=== PATIENT | female | born 1965 | race Caucasian/White ===

== ENCOUNTER → 2016-09-01 | Outpatient (CLI) | payer BC, OTHER ==
--- NOTE | 2016-09-01 16:32 | MR ---
MRI of the Right Shoulder History: Status post rotator cuff reconstruction. Patient fell out of bed and may have reinjured righ t shoulder. Technique: Axial proton density, oblique coronal, and sagittal T1 and T2 images were acquired. Findings: Surgical features of a rotator cuff reconstruction are identified, with evidence of decompr essive acromioplasty. There are multiple suture anchors present in the greater tuberosity. There is evidence of 2 separate areas of injury to the reconstructed rotator cuff. Focal full-thickne ss tear of the anterior distal fibers of the supraspinatus tendon just proximal to the greater tubero sity attachment is identified, small in size (image 8 series 7). There is also a full-thickness perfo ration of the infraspinatus tendon at the myotendinous junction proximal to the distal reconstruction . This tear measures 9 mm in AP dimensions and is best visualized on oblique sagittal image 13 of ser ies 9 and axial image 6 of series 4. The subscapularis tendon is severely thinned distally compatible with high-grade near-complete tear. Teres minor is intact. Moderate fatty atrophy of supraspinatus, infraspinatus, and subscapularis muscles is identified. The long head biceps tendon is severely attenuated throughout the bicipital tubercle and is not visua lized within the shoulder joint. No suture anchor for tenodesis is identified. Findings, therefore, s uggest complete tear of long head biceps tendon with retraction and scarring within the tendon sheath . No displaced glenoid labral tear noted. The articular cartilage of the glenohumeral joint is intact. IMPRESSION: 1. Surgical features of rotator cuff reconstruction and decompressive acromioplasty. Two areas of rec urrent rotator cuff tendon injury are identified, one involving the anterior distal fibers of suprasp inatus at the greater tuberosity and the second involving infraspinatus at the myotendinous junction. 2. Near complete tear of subscapularis. 3. Severe attenuation of long head biceps tendon, not visualized within the shoulder joint, suggestin g complete tear with retraction and scarring within the tendon sheath. 4. Moderate fatty atrophy of supraspinatus, infraspinatus, subscapularis muscles.
== END ==
LOC: FIMAGING 08:19
PROVIDERS: ATTEND Physician Assistant
DX: S46.011A Strain of muscle(s) and tendon(s) of the rotator cuff of right shoulder, initial encounter (principal); Z96.611 Presence of right artificial shoulder joint

== ENCOUNTER → 2017-02-24 | Outpatient (CLI) | payer BC, OTHER | LOC: FIMAGING 18:42 | PROVIDERS: ATTEND Physician Assistant | DX: M75.121 Complete rotator cuff tear or rupture of right shoulder, not specified as traumatic (principal); M75.21 Bicipital tendinitis, right shoulder; M75.81 Other shoulder lesions, right shoulder; Z98.890 Other specified postprocedural states ==

== ENCOUNTER 2017-03-15 15:46 | Emergency (ER) | payer BC, OTHER ==
[2017-03-15 15:59] VITALS: RESP 18; TEMP 98
[2017-03-15] MEDS ORDERED: ACETAMINOPHEN 500 MG TAB PO ONE (16:08)
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
[2017-03-15 17:15] VITALS: O2SAT 96
[2017-03-15 17:30] VITALS: BP 112/62; PULSE 78
== END 2017-03-15 17:29 | disposition home or self-care (01) ==
LOC: CED 15:46
PROC: 0HQ0XZZ Repair Scalp Skin, External Approach (ICD-10-PCS; principal; 2017-03-15)
DX: S06.0X0A Concussion without loss of consciousness, initial encounter (principal); S01.81XA Laceration without foreign body of other part of head, initial encounter; F17.200 Nicotine dependence, unspecified, uncomplicated; V18.0XXA Pedal cycle driver injured in noncollision transport accident in nontraffic accident, initial encounter; Y92.410 Unspecified street and highway as the place of occurrence of the external cause; Y99.8 Other external cause status; Y93.55 Activity, bike riding

== ENCOUNTER 2017-04-25 08:36 | Day surgery (SDC) | payer BC, OTHER ==
--- NOTE | 2017-04-24 17:20 | PDHPUP ---
History & Physical Update H&P update statement: This history and physical update is based on an assessment of the patient which was completed after admission or registration (within 24 hours), but prior to the surgery/procedure. H&P update: H&P reviewed & patient examined, no change in patient's condition since H&P completed
[~2017-04-25 08:36] MED LIST: ACETAMINOPHEN 500 MG TAB PO ONE; BUPIVACAINE/EPI 0.5% 30 ML SDV ONE; CLINDAMYCIN 900 MG/DEXTROSE 50 ML IV ONE; LR 1,000 ML IV SCH; PREGABALIN 150 MG CAP PO ONE
[2017-04-25] MEDS ORDERED: LIDOCAINE 1% 2 ML INJ ID PRN (09:00)
[2017-04-25] MEDS ORDERED: LR 1,000 ML IV ONE (09:00)
[2017-04-25] MEDS ORDERED: PREGABALIN 150 MG CAP PO ONE (09:30)
[2017-04-25] MEDS ORDERED: CLINDAMYCIN 900 MG/DEXTROSE 50 ML IV ONE (09:30)
[2017-04-25] MEDS ORDERED: ACETAMINOPHEN 500 MG TAB PO ONE (09:30)
[2017-04-25] MEDS ORDERED: MIDAZOLAM 2 MG/2 ML VIAL IVP ONE (09:50)
--- NOTE | 2017-04-25 09:50 | PDANEPAE ---
ANE History of Present Illness right shoulder pain p/f right shoulder scope and rotator cuff repair ANE Past Medical History - Cardiovascular History Hx Hypertension: No Hx Arrhythmias: No Hx Chest Pain: No Hx Coronary Artery / Peripheral Vascular Disease: No Hx CHF / Valvular Disease: No Hx Palpitations: No - Pulmonary History Hx COPD: No Hx Asthma/Reactive Airway Disease: No Hx Recent Upper Respiratory Infection: No Hx Oxygen in Use at Home: No Hx Sleep Apnea: No Sleep Apnea Screening Result - Last Documented: Negative - Neurologic History Hx Cerebrovascular Accident: No Hx Seizures: No Hx Dementia: No - Endocrine History Hx Diabetes: No - Renal History Hx Renal Disorders: No - Liver History Hx Hepatic Disorders: No - Neurological & Psychiatric Hx Hx Neurological and Psychiatric Disorders: No - Cancer History Hx Cancer: No Cancer History Comment: skin ca - Congenital Disorder History Hx Congenital Disorders: No - GI History Hx Gastrointestinal Disorders: Yes Gastrointestinal History Comment: hx ulcers - Chronic Pain History Chronic Pain: Yes - Surgical History Prior Surgeries: right shoulder rotator cuff x 2. right foot surgery x 2. mouth/jaw surgery ANE Review of Systems Review of Systems: - Exercise capacity METS (RN): 4 METS ANE Patient History - Allergies Allergies/Adverse Reactions: Penicillins Allergy (Verified 03/01/15 15:44) Sulfa (Sulfonamide Antibiotics) Allergy (Verified 03/01/15 15:44) - Home Medications Home medications: home medication list seen and reviewed Home Medications: Cymbalta 03/01/15 [Last Taken 04/24/17] Oxycodone Cr 03/01/15 [Last Taken 04/25/17] Oxycontin 03/01/15 [Last Taken 04/25/17] Cyclobenzaprine 04/21/17 [Last Taken 04/24/17] Promethazine HCl 04/21/17 [Last Taken 04/18/17] - NPO status NPO Since - Liquids (Date): 04/25/17 NPO Since - Liquids (Time): 05:30 NPO Since - Solids (Date): 04/24/17 NPO Since - Solids (Time): 23:30 - Anes Hx Anes Hx: no prior problems - Smoking Hx Smoking Status: Current every day smoker ANE Labs/Vital Signs - Vital Signs Blood Pressure: 94/59 Heart Rate: 68 Respiratory Rate: 16 O2 Sat (%): 96 Height: 157.48 cm Weight: 56.245 kg ANE Physical Exam - Airway Neck exam: FROM Mouth exam: normal dental/mouth exam - Pulmonary Pulmonary: no respiratory distress - Cardiovascular Cardiovascular: regular rate and rhythym - ASA Status ASA Status: III ANE Anesthesia Plan Anesthesia Plan: general endotracheal anesthesia Regional Anesthesia: single shot NB, interscalene BP NB
[2017-04-25] MEDS ORDERED: MIDAZOLAM 2 MG/2 ML VIAL ONE (09:52)
[2017-04-25] MEDS ORDERED: BUPIVACAINE 0.5% 30 ML SDV ONE (09:53)
[2017-04-25] MEDS ORDERED: PROPOFOL 200 MG/20 ML VIAL ONE (09:53)
[2017-04-25] MEDS ORDERED: fentaNYL 100 MCG/2 ML INJ ONE (09:53)
[2017-04-25] MEDS ORDERED: LIDOCAINE 2% 5 ML SDV ONE (09:55)
[2017-04-25] MEDS ORDERED: ONDANSETRON 4 MG/2 ML VIAL ONE ×2 (09:57→12:44)
[2017-04-25] MEDS ORDERED: DEXAMETHASONE 4 MG/ML VIAL ONE (09:57)
[2017-04-25] MEDS ORDERED: ROCURONIUM 100 MG/10 ML VIAL ONE (09:57)
[2017-04-25] MEDS ORDERED: CALCIUM CHLORIDE 1 GM/10 ML INJ ONE (10:40)
[2017-04-25] MEDS ORDERED: THROMBIN (BOVINE) 5,000 UNIT VIAL TP ONE (10:40)
[2017-04-25] MEDS ORDERED: PHENYLEPHRINE 10 MG/ML SDV ONE (10:46)
[2017-04-25] MEDS ORDERED: SUGAMMADEX SODIUM 200 MG/2 ML VIAL IVP ONE (11:14)
[2017-04-25] MEDS ORDERED: NALOXONE HCL 0.4 MG/ML INJ IVP PRN (12:09)
[2017-04-25] MEDS ORDERED: ALBUTEROL 3 ML DEYVIAL IH PRN (12:09)
[2017-04-25] MEDS ORDERED: LR 500 ML IV PRN (12:09)
[2017-04-25] MEDS ORDERED: ONDANSETRON 4 MG/2 ML VIAL IVP PRN (12:09)
[2017-04-25] MEDS ORDERED: OXYCODONE/APAP 5/325 TAB PO PRN ×2 (12:09→12:35)
[2017-04-25] MEDS ORDERED: HYDROmorphONE/DILAUDID 1 MG/ML INJ IVP PRN (12:09)
[2017-04-25] MEDS ORDERED: fentaNYL 100 MCG/2 ML INJ IVP PRN (12:09)
[2017-04-25] MEDS ORDERED: ACETAMINOPHEN 500 MG TAB PO PRN (12:09)
[2017-04-25] MEDS ORDERED: PROMETHAZINE HCL 25 MG/ML INJ IVP PRN (12:09)
[2017-04-25] MEDS ORDERED: HYDROCODONE/APAP 5/325 TAB PO PRN (12:35)
--- NOTE | 2017-04-25 12:35 | POSTOPPROG ---
Post Op Note Date of Operation: 04/25/17 Surgeon: Cyndi More Research Analyst: coltrain Anesthesia: GET(General Endotracheal) Pre-op Diagnosis: r recurrenrt rct Procedure: r shoulder scope with rcr x2 and anuj x5 with debride labrum, subacromial bu Inf/Abcess present in the surg proc area at time of surgery?: No Depth: Deep Incisional (Fascial) EBL: 50-100
--- NOTE | 2017-04-25 12:35 | POSTANESTH ---
Post Anesthetic Evaluation Cardiovascular Status: Normal, Stable Respiratory Status: Normal, Stable Level of Consciousness/Mental Status: Can Participate in Eval Pain Control: Adequate, Prn Tx Ordered Nausea/Vomiting Control: Adequate, Prn Tx Ordered Complications Possibly Related to Anesthesia: None Noted
[2017-04-25 12:56] VITALS: PULSE 68
[2017-04-25 13:06] VITALS: RESP 18
--- NOTE | 2017-04-25 13:58 | GOP ---
[f rep st] OPERATIVE REPORT DATE OF OPERATION: 04/25/2017 SURGEON: Cyndi More MD [employer]ACH[employer]ARNESS RIGGER: Wilmer Mcclain, BRIANA, LSA whose presence was medically necessary. ANESTHESIA: Endotracheal intubation plus scalene nerve block per surgeon's request. PREOPERATIVE DIAGNOSIS: Right shoulder recurrent rotator cuff tear. POSTOPERATIVE DIAGNOSIS: Right shoulder recurrent rotator cuff tear with loose body in the subacromi al space, grade 3 chondral changes to the glenohumeral joint. PROCEDURE PERFORMED: Right shoulder arthroscopy with rotator cuff repair x2, removal of hardware x5 and debridement of subacromial bursa and scar, debridement of rotator cuff off acromion and debrideme nt of labrum with chondroplasty of the glenohumeral joint. FINDINGS: INDICATIONS: This is a 51-year-old female, who has been through 2 prior surgeries to the shoulder in the last year. She continues to have pain within the shoulder and MRI reveals a very thin, if not t orn, rotator cuff tear along with the possibility of a loose body in the subacromial space. She wish es to have surgery in order to resolve the problem. DESCRIPTION OF PROCEDURE: The patient brought to the operating room after the right side had been id entified as the correct side by the patient, nurse and physician once in the operating room. She was given a scalene block on the right side then placed under general anesthesia using endotracheal intu bation. Once asleep, she was placed in a beach chair position with the right upper extremity sterile ly prepped and draped in the usual fashion using GSI solution. Once prepped and draped, incision usi ng prior scars, an incision was made off the posterolateral corner of the acromion with the camera in troduced without difficulty. Inspection of the joint revealed fraying of the labrum as well as a loo se flap of cartilage of the glenoid. Inspection also revealed the rotator cuff to be split longitudi power. Therefore using an in to out technique an anterior portal was made in the superolateral corac oid process using a prior incision with a 6 x 75 mm threaded cannula placed through the anterior port al and a 3.5 mm smooth shaver brought through the cannula in order to debride the labral and the pee dral defects associated with the glenohumeral joint. Once completed, the instruments were removed fr om the shoulder joint and used the same portal sites, were reintroduced in subacromial space. Inspec tion revealed an abundant amount of subacromial bursa and scar tissue within the subacromial space. It was also found that the anterior portion of the rotator cuff, instead of healing onto the greater tuberosity, it healed onto the acromion instead, making visualization somewhat difficult. Further in spection through the rotator cuff split revealed an anchor to be loose within the subacromial space. It had been encased in some scar tissue, but otherwise was completely out of the bone and floating i n the subacromial space. This was removed. There were 2 sets of anchors, 2 each in the anterior and posterior portions of the area of the greater tuberosity. All 4 of them were protruding out of the bone as if working their way out. They were removed as well as the suture associated with them. Once completed, she was noted to have fairly large holes left in the greater tuberosity. The area around the bone was debrided. An abundant amount of scar tissue had to be removed from the undersurface of the acromion. There was noted to be sutures passed through the deltoid and the acromion at the late ral portion of the acromion. It was also noted that the rotator cuff had to be peeled off the superi or and anterior portions of the acromion and the shoulder in the subdeltoid region in order to gain a large muscular flap that had abundant amount of vasculature within it, but was attached to the delto id and acromion instead of the greater tuberosity. Once completed and there was a loose enough flap, 2 sets of FiberWire were woven through the anterior and posterior portion of the rotator cuff tear. They were pulled taut onto the greater tuberosity and reattached on the bone using 2 different sets of 4.5 mm cayenne anchors that were driven in the bone, noted to have good fixation. The sutures wer e pulled on and noted to have no movement of the anchor within the bone. Sutures were cut short. It was noted to have closed the interval associated with the supraspinatus and infraspinatus was theref ore left alone. All instruments were then removed from the subacromial space with 30 cc of Marcaine infused in the subacromial space. The 3 portal sites were closed using 3-0 nylon suture in a figure- of-eight type stitch with plasma gel placed in the subacromial space. The wound was then dressed wit h Xeroform, 4 x 4, and Tegaderm. The patient was completely undraped in the operating room, had a sh oulder immobilizer placed on the right upper extremity. She was then woken up, extubated, transferre d onto a stretcher, sent to recovery room in good condition. /[id number]/MODL
[2017-04-25 15:36] VITALS: TEMP 97.7
[2017-04-25 15:39] VITALS: BP 107/60; O2SAT 92
== END 2017-04-25 13:50 | disposition home or self-care (01) ==
LOC: FSGY 08:36
PROVIDERS: ATTEND Orthopaedic Surgery
PROC: 0MB14ZZ Excision of Right Shoulder Bursa and Ligament, Percutaneous Endoscopic Approach (ICD-10-PCS; principal; 2017-04-25 09:45)
PROC: 0LM14ZZ Reattachment of Right Shoulder Tendon, Percutaneous Endoscopic Approach (ICD-10-PCS; principal; 2017-04-25 09:45)
PROC: 0RBJ4ZZ Excision of Right Shoulder Joint, Percutaneous Endoscopic Approach (ICD-10-PCS; principal; 2017-04-25 09:45)
DX: M75.121 Complete rotator cuff tear or rupture of right shoulder, not specified as traumatic (principal); M75.81 Other shoulder lesions, right shoulder; M24.011 Loose body in right shoulder
CPT/HCPCS: C1713; J0171; J1100; J2250; J2370; J2405; J2704; J3010

== ENCOUNTER → 2017-08-01 | Outpatient (CLI) | payer BC, OTHER | LOC: FIMAGING 09:33 | PROVIDERS: ATTEND Family Medicine | DX: Z13.820 Encounter for screening for osteoporosis (principal); M81.0 Age-related osteoporosis without current pathological fracture; Z78.0 Asymptomatic menopausal state | CPT/HCPCS: G0202 ==

== ENCOUNTER 2017-08-21 11:53 | Day surgery (SDC) | payer BC, OTHER ==
[2017-08-21] MEDS ORDERED: LIDOCAINE 1% 2 ML INJ ID PRN (12:14)
[2017-08-21] MEDS ORDERED: LR 1,000 ML IV ONE (12:14)
--- NOTE | 2017-08-21 13:48 | PDGENHP ---
History & Physical Chief Complaint: epigastric pain and screening History of Present Illness: 52 year old female presents for evaluation of epigastric pain. She has history of PUD. Also needs screening. Pertinent Past, Social, Family History: PMHx: Narcotics. FMHx: No CRC Relevant Physical Exam: HEENT: anicteric. Cv: RRR +x1s2. lungs: CTAB No w/r/ r. Abd: soft, nt, + bs. Ext: no c/c/e Cardiorespiratory Assessment: ASA 3
[2017-08-21] MEDS ORDERED: INDOMETHACIN 50 MG SUPP PR PRN (13:49)
--- NOTE | 2017-08-21 13:49 | PDANEPAE ---
ANE History of Present Illness 52 yo for egd/colonoscopy ANE Past Medical History - Cardiovascular History Hx Hypertension: No Hx Arrhythmias: No Hx Chest Pain: No Hx Coronary Artery / Peripheral Vascular Disease: No Hx CHF / Valvular Disease: No Hx Palpitations: No - Pulmonary History Hx COPD: No Hx Asthma/Reactive Airway Disease: No Hx Recent Upper Respiratory Infection: No Hx Oxygen in Use at Home: No Hx Sleep Apnea: No Sleep Apnea Screening Result - Last Documented: Negative - Neurologic History Hx Cerebrovascular Accident: No Hx Seizures: No Hx Dementia: No - Endocrine History Hx Diabetes: No - Renal History Hx Renal Disorders: No - Liver History Hx Hepatic Disorders: No - Neurological & Psychiatric Hx Hx Neurological and Psychiatric Disorders: No - Cancer History Hx Cancer: Yes Cancer History Comment: skin - Congenital Disorder History Hx Congenital Disorders: No - GI History Hx Gastrointestinal Disorders: Yes Gastrointestinal History Comment: hx ulcers. FAMILY HX OF POLYPS - Chronic Pain History Chronic Pain: Yes - Surgical History Prior Surgeries: right shoulder rotator cuff x 3 MOST RECENT 04/25/2017. right foot surgery x 2. mouth/jaw surgery ANE Review of Systems Review of Systems: - Exercise capacity METS (RN): 4 METS ANE Patient History - Allergies Allergies/Adverse Reactions: naloxone [From Narcan] Allergy (Verified 08/21/17 12:17) Penicillins Allergy (Verified 08/21/17 12:18) Loss of consciousness Sulfa (Sulfonamide Antibiotics) Allergy (Verified 03/01/15 15:44) - Home Medications Home medications: home medication list seen and reviewed Home Medications: Cymbalta 03/01/15 [Last Taken 08/21/17] Oxycodone Cr 03/01/15 [Last Taken 08/21/17] Oxycontin 03/01/15 [Last Taken 08/18/17] Cyclobenzaprine 04/21/17 [Last Taken 08/18/17] Promethazine HCl 04/21/17 [Last Taken 08/21/17] - NPO status NPO Status: no food or drink >8 hours NPO Since - Liquids (Date): 08/21/17 NPO Since - Liquids (Time): 03:30 NPO Since - Solids (Date): 08/20/17 NPO Since - Solids (Time): 08:30 - Anes Hx Anes Hx: no prior problems - Smoking Hx Smoking Status: Current every day smoker ANE Labs/Vital Signs - Vital Signs Blood Pressure: 99/57 Heart Rate: 72 Respiratory Rate: 16 O2 Sat (%): 96 Height: 5 ft 2 in Weight: 56.245 kg ANE Physical Exam - Airway Neck exam: FROM Mallampati Score: Class 2 - Pulmonary Pulmonary: no respiratory distress - Cardiovascular Cardiovascular: regular rate and rhythym - ASA Status ASA Status: II ANE Anesthesia Plan Anesthesia Plan: GA with mask
[2017-08-21] MEDS ORDERED: PROPOFOL/EMULSION 500 MG/50 ML BOTTLE IV ONE (13:51)
[2017-08-21] MEDS ORDERED: NS 500 ML IV SCH (14:00)
--- NOTE | 2017-08-21 14:08 | GIREPORT ---
[facility] Surgical Services - Endoscopy Department Patient Name: Lupe Medeiros Procedure Date: 08/21/2017 1:51 PM Patient Type: Outpatient Attending MD/ ER Physician: Bob Ramos MD Procedure: Upper GI endoscopy Indications: Epigastric abdominal pain Patient Profile: 52 year old female presents for evaluaton of epigastric abdominal pain. Providers: Bob Ramos MD Medicines: Monitored Anesthesia Care Complications: No immediate complications. Estimated blood loss: Minimal. Description of Procedure: After obtaining informed consent, the endoscope was passed under direct vision. Throughout the procedure, the patient's blood pressure, pulse, and oxygen saturations were monitored continuously.The upper GI endoscopy w as accomplished without difficulty. The patient tolerated the procedure we ll. The Endoscope was introduced through the mouth, and advanced to the sec ond part of duodenum. Findings: The examined esophagus was normal. A hiatal hernia was present. Patchy mildly erythematous mucosa was found in the gastric body and in the gastric antrum. Biopsies were taken with a cold forceps for histology. A few small sessile polyps were found on the greater curvature of the stomach. Biopsies were taken with a cold forceps for histology. The examined duodenum was normal. Biopsies for histology were taken wit h a cold forceps for evaluation of celiac disease. Estimated Blood Loss: Estimated blood loss was minimal. Post Op Diagnosis: - Normal esophagus. - Hiatal hernia. - Erythematous mucosa in the gastric body and antrum. Biopsied. - A few gastric polyps. Biopsied. - Normal examined duodenum. Biopsied. - Etiology? No cause found await biopsy results. Consider trial of PPI versus antispasmodic. Recommendation: - Perform a colonoscopy today. - Await pathology results. - Thank you for allowing me to participate in the care of your patient. Attending Participation: I personally performed the entire procedure. Bob Ramos MD Bob Ramos MD 08/21/2017 2:07:45 PM This report has been signed electronicallyBob Ramos MD Number of Addenda: 0 Note Initiated On: 08/21/2017 1:51 PM [email or web address]
[2017-08-21] MEDS ORDERED: HYDROCODONE/APAP 5/325 TAB PO PRN (14:46)
[2017-08-21] MEDS ORDERED: OXYCODONE/APAP 5/325 TAB PO PRN (14:46)
[2017-08-21] MEDS ORDERED: fentaNYL 100 MCG/2 ML INJ IVP PRN (14:46)
[2017-08-21 14:49] VITALS: TEMP 97.5
--- NOTE | 2017-08-21 14:54 | GIREPORT ---
[facility] Surgical Services - Endoscopy Department Patient Name: Lupe Medeiros Procedure Date: 08/21/2017 1:52 PM Patient Type: Outpatient Attending MD/ ER Physician: Bob Ramos MD Procedure: Colonoscopy Indications: Screening for colorectal malignant neoplasm Patient Profile: 52 year old female presents for screening colonoscopy. Providers: Bob Ramos MD Medicines: Monitored Anesthesia Care Complications: No immediate complications. Description of Procedure: After obtaining informed consent, the scope was passed under direct vis ion. Throughout the procedure, the patient's blood pressure, pulse, and oxyg en saturations were monitored continuously.The colonoscopy was performed without difficulty. The patient tolerated the procedure well. The quali ty of the bowel preparation was good. The ileocecal valve, appendiceal orific e, and rectum were photographed. The Colonoscope with irrigation channel w as introduced through the anus and advanced to the cecum, identified by appendiceal orifice and ileocecal valve. Findings: The perianal and digital rectal examinations were normal. Pertinent negatives include no palpable rectal lesions. The entire examined colon appeared normal. Estimated Blood Loss: Estimated blood loss: none. Post Op Diagnosis: - The entire examined colon is normal. - No specimens collected. Recommendation: - Discharge patient to home (with escort). - Resume previous diet. - Continue present medications. - Repeat colonoscopy in 10 years for screening purposes. - Thank you for allowing me to participate in the care of your patient. Attending Participation: I personally performed the entire procedure. Bob Ramos MD Bob Ramos MD 08/21/2017 2:54:40 PM This report has been signed electronicallyBob Ramos MD Number of Addenda: 0 Note Initiated On: 08/21/2017 1:52 PM Total Procedure Duration Time 0 hours 23 minutes 53 seconds [email or web address]
[2017-08-21 15:28] VITALS: BP 100/68; PULSE 65; RESP 17; O2SAT 96
== END 2017-08-21 15:40 | disposition home or self-care (01) ==
LOC: FSGY 11:53
PROVIDERS: ATTEND Internal Medicine Gastroenterology
DX: Z12.11 Encounter for screening for malignant neoplasm of colon (principal); R10.13 Epigastric pain; K29.30 Chronic superficial gastritis without bleeding; K44.9 Diaphragmatic hernia without obstruction or gangrene
CPT/HCPCS: J2704

== ENCOUNTER → 2018-01-05 | Outpatient (CLI) | payer BC, OTHER | LOC: FIMAGING 18:50 | PROVIDERS: ATTEND Orthopaedic Surgery | DX: M25.511 Pain in right shoulder (principal); M24.811 Other specific joint derangements of right shoulder, not elsewhere classified; M67.911 Unspecified disorder of synovium and tendon, right shoulder; R60.9 Edema, unspecified ==

== ENCOUNTER 2018-03-13 08:26 | Day surgery (SDC) | payer BC, OTHER ==
--- NOTE | 2018-03-12 21:25 | GHP ---
[f rep st] HISTORY AND PHYSICAL PATIENT NAME: DINORA MEDEIROS DATE OF : 1965 CURRENT COMPLAINT: Right shoulder pain and weakness. HISTORY OF PRESENT ILLNESS: Ms. Medeiros is a 52-year-old female with a long and complicated history o f right shoulder issues. She had previously undergone a right shoulder revision rotator cuff repair. Had an incident where the shoulder was unexpectedly moved around and she felt and heard a pop withi n the shoulder. Repeat MRI has revealed recurrent rotator cuff tear. ALLERGIES: Include nickel, penicillin, and sulfa medications. CURRENT MEDICATIONS: Include alendronate, Clonidine, cyclobenzaprine, duloxetine, mupirocin, oxycodo ne, Oxy Contin, pantoprazole, promethazine. PAST MEDICAL HISTORY: Prior medical problems include anemia, arthritis, cancer, and ulcers. PAST SURGICAL HISTORY: Include shoulder surgery x3. Dental surgery x3. Foot surgery x2. SOCIAL HISTORY: She is a current smoker at 1/4 pack per day. She does not drink alcohol. PHYSICAL EXAMINATION: HEENT: The patient's pupils are equal, round, and reactive to light. CHEST: Clear to auscultation. HEART: Regular rate and rhythm. ABDOMEN: Soft and nontender. EXTREMITIES : Shoulder reveals decreased range of motion, weakness to external rotation and supraspinatus. IMAGING: MRI reveals complete rotator cuff tear with retraction and muscular atrophy. ASSESSMENT AND PLAN: Patient is status post right rotator cuff tear. Plan is to take her to the ope rative room and undergo a revision right shoulder rotator cuff repair versus superior capsular recons truction. /[id number]/MODL
[2018-03-13] MEDS ORDERED: ACETAMINOPHEN 500 MG TAB PO ONE (08:41)
[2018-03-13] MEDS ORDERED: CLINDAMYCIN 900 MG/DEXTROSE 50 ML IV ONE (08:41)
[2018-03-13] MEDS ORDERED: LR 1,000 ML IV ONE (08:42)
[2018-03-13] MEDS ORDERED: BUPIVACAINE/EPI 0.5% 30 ML SDV ONE (09:10)
[2018-03-13] MEDS ORDERED: EPINEPHrine 1 MG/ML INJ ONE ×2 (09:10→13:04)
--- NOTE | 2018-03-13 10:30 | PDANEPAE ---
ANE History of Present Illness r shoulder pain ANE Past Medical History - Cardiovascular History Hx Hypertension: No Hx Arrhythmias: No Hx Chest Pain: No Hx Coronary Artery / Peripheral Vascular Disease: No Hx CHF / Valvular Disease: No Hx Palpitations: No Cardiovascular History Comment: RUNS LOW BP - Pulmonary History Hx COPD: No Hx Asthma/Reactive Airway Disease: No Hx Recent Upper Respiratory Infection: No Hx Oxygen in Use at Home: No Hx Sleep Apnea: No Sleep Apnea Screening Result - Last Documented: Negative - Neurologic History Hx Cerebrovascular Accident: No Hx Seizures: No Hx Dementia: No - Endocrine History Hx Diabetes: No - Renal History Hx Renal Disorders: No - Liver History Hx Hepatic Disorders: No - Neurological & Psychiatric Hx Hx Neurological and Psychiatric Disorders: No - Cancer History Hx Cancer: Yes 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 right shoulder rotator cuff x 3 MOST RECENT 04/25/2017. right foot surgery x 2. mouth/jaw surgery ANE Review of Systems Review of Systems: - Exercise capacity METS (RN): 5 METS ANE Patient History - Allergies Allergies/Adverse Reactions: naloxone [From Narcan] Allergy (Verified 02/26/18 10:29) SHOCK Penicillins Allergy (Verified 02/26/18 10:29) INFANCY - UNK RX Sulfa (Sulfonamide Antibiotics) Allergy (Verified 02/26/18 10:29) GI - SICK TO STOMACH - Home Medications Home Medications: Cymbalta 03/01/15 [Last Taken 03/12/18] Oxycodone Cr 03/01/15 [Last Taken 03/12/18] Oxycontin 03/01/15 [Last Taken 03/13/18] Cyclobenzaprine 04/21/17 [Last Taken 3 Days Ago ~03/10/18] Promethazine HCl 04/21/17 [Last Taken 1 Month Ago ~02/10/18] Clonidine 02/26/18 [Last Taken 03/12/18] Herbals/Supplements -Info Only 02/26/18 [Last Taken Unknown] Miralax 17 gm (*) 02/26/18 [Last Taken Unknown] Ondansetron 02/26/18 [Last Taken Unknown] - NPO status NPO Since - Liquids (Date): 03/13/18 NPO Since - Liquids (Time): 05:00 NPO Since - Solids (Date): 03/12/18 NPO Since - Solids (Time): 23:00 - Smoking Hx Smoking Status: Current every day smoker - Family Anes Hx Family Hx Anesthesia Complications: NONE ANE Labs/Vital Signs - Vital Signs Blood Pressure: 105/66 Heart Rate: 52 Respiratory Rate: 16 O2 Sat (%): 94 Height: 157.48 cm Weight: 56.699 kg ANE Physical Exam - Airway Neck exam: FROM Mallampati Score: Class 2 Mouth exam: normal dental/mouth exam - Pulmonary Pulmonary: no respiratory distress - Cardiovascular Cardiovascular: regular rate and rhythym - ASA Status ASA Status: II ANE Anesthesia Plan Anesthesia Plan: general endotracheal anesthesia Regional Anesthesia: interscalene BP NB
[2018-03-13] MEDS ORDERED: ROPIVACAINE HCL 150 MG/30 ML INJ ONE ×2 (10:34→15:20)
[2018-03-13] MEDS ORDERED: MIDAZOLAM 2 MG/2 ML VIAL ONE (10:35)
[2018-03-13] MEDS ORDERED: PROPOFOL 200 MG/20 ML VIAL ONE (10:35)
[2018-03-13] MEDS ORDERED: fentaNYL 100 MCG/2 ML INJ ONE ×2 (10:35→14:23)
[2018-03-13] MEDS ORDERED: THROMBIN (BOVINE) 5,000 UNIT VIAL TP ONE (11:26)
[2018-03-13] MEDS ORDERED: CALCIUM CHLORIDE 1 GM/10 ML INJ ONE (11:26)
[2018-03-13] MEDS ORDERED: NALOXONE HCL 0.4 MG/ML INJ IVP PRN (12:03)
[2018-03-13] MEDS ORDERED: fentaNYL 100 MCG/2 ML INJ IVP PRN (12:03)
[2018-03-13] MEDS ORDERED: HYDROmorphONE/DILAUDID 1 MG/ML INJ IVP PRN (12:03)
[2018-03-13] MEDS ORDERED: PROMETHAZINE HCL 25 MG/ML INJ IVP PRN ×2 (12:03→15:15)
[2018-03-13] MEDS ORDERED: ONDANSETRON 4 MG/2 ML VIAL IVP PRN ×2 (12:03→15:15)
[2018-03-13] MEDS ORDERED: EPINEPHrine 30 MG/30 ML MDV (0.1 MG/0.1 ML) ONE (13:11)
[2018-03-13] MEDS ORDERED: ACETAMINOPHEN 325 MG TAB PO PRN (15:15)
[2018-03-13] MEDS ORDERED: OXYCODONE/APAP 5/325 TAB PO PRN (15:15)
--- NOTE | 2018-03-13 15:15 | POSTOPPROG ---
Post Op Note Date of Operation: 03/13/18 Surgeon: [employer] Librarian: coltrain Anesthesia: LMA, Other (Specify) Pre-op Diagnosis: r recurrent rct Procedure: r shoulder scope with scr/sad/dce/debride rc/labrum Inf/Abcess present in the surg proc area at time of surgery?: No Depth: Deep Incisional (Fascial) EBL: 100-500
[2018-03-13] MEDS ORDERED: LIDOCAINE 2% 5 ML SDV ONE (15:20)
[2018-03-13] MEDS ORDERED: ONDANSETRON 4 MG/2 ML VIAL ONE (15:20)
[2018-03-13] MEDS ORDERED: DEXAMETHASONE 4 MG/ML VIAL ONE (15:20)
[2018-03-13] MEDS ORDERED: ROCURONIUM 100 MG/10 ML VIAL ONE (15:20)
--- NOTE | 2018-03-13 16:33 | GOP ---
[f rep st] OPERATIVE REPORT DATE OF OPERATION: 03/13/2018 SURGEON: Cyndi More MD REGISTERED PUBLIC SURVEYOR: Wilmer Mcclain [facility] whose presence was medically necessary. ANESTHESIA: By LMA plus scalene nerve block per surgeon's request. PREOPERATIVE DIAGNOSIS: Recurrent right rotator cuff tear. POSTOPERATIVE DIAGNOSIS: Recurrent right rotator cuff tear with labral tearing and bicipital fraying . PROCEDURE PERFORMED: Right shoulder arthroscopy with superior capsular reconstruction, subacromial d ecompression of 4 mm, distal clavicle excision of 3 mm, and debridement of labral tear and debridemen t of biceps and its biceps anchor. FINDINGS: INDICATIONS: This is a 52-year-old female with a recurrent right rotator cuff tear. This is the 3rd time that she has done this. MRI exam reveals poor quality of muscle as well as a large tear. She wished to have surgery in order to resolve the problem. DESCRIPTION OF PROCEDURE: Patient brought to the operating room after the right side had been identi fied as the correct side by the patient, nurse, and physician. Once in the operating room, she was g iven a scalene block on the right side and then placed under general anesthesia using an LMA. Once a sleep, she was placed in a beach chair position with the right upper extremity sterilely prepped and draped in the usual fashion using GSI solution. Once prepped and draped, using old scars, an incisio n was made in the posterolateral corner of the acromion with the camera introduced without difficulty . Inspection of the joint revealed no loose bodies. There was noted to be tearing of the superior, anterior, and posterior portions of the labrum as well as significant fraying to the biceps tendon. There was also a large rotator cuff tear with frayed tissue noted. Therefore, using an in-to-out tech nique in the anterior portal with superolateral to the coracoid process using an old scar with a 6 x 75 mm threaded cannula placed through the anterior portal, a 3.5 mm smooth shaver was used to debride and debulk the tears of the superior, anterior, and posterior portions of the labrum as well as the bicipital tendon as it attached onto its anchor. The rotator cuff edges were also debrided. Once completed, all instruments were removed from the shoulder joint and were repositioned using the same portal sites in the subacromial space. A third incision was made 2 cm lateral to the acromial p rocess in line with the posterior cortex of the clavicle along an old scar. With the camera switched to this lateral portal, an abundant amount of soft tissue was debrided from the subacromial space an d the undersurface of the acromion. She was noted to have a small remnant of acromion at the anterio r portion. This was burred back using an acromionizer bur. The amount of bone was removed. It was approximately 4 mm. Distal clavicle was also noted to have a short, sharp inferior spur, and this wa s also removed using combination of shaver and bur, removing 3 mm of bone from the undersurface of th e clavicle. Attention was then turned to the rotator cuff. An abundant amount of debridement was done around the rotator cuff in order to loosen it from its superior scarring and its inferior footprint. The muscl e was able to be pulled to the chondral border, but was unable to be pulled and advanced far enough i n order to have apposition to bleeding bone. It was therefore decided to do superior capsular recons truction. The soft tissue was debrided from the superior portion of the glenoid neck with 2 anchors placed in the superior glenoid neck. Sutures were brought through the lateral portal. Measurements were taken between the 2 anchors and the distance from the glenoid neck onto the greater tuberosity. A graft was made in order to accommodate these measurements. The sutures in the glenoid were then p assed into the medial portion of the graft. The graft was then brought into the shoulder joint with the sutures cinching the graft onto the eburnated bone of the glenoid at which point the 2 free ends of the sutures were then passed onto 2.7 mm [place] anchors. Once in position to hold the anterior a nd posterior corners of the graft in place. Once completed, the graft was pulled taut. Two 5.5 mm a nchors were screwed into the eburnated bone associated with the greater tuberosity, and their sutures passed through the graft as it was pulled taut. The sutures were then crossed in order to get a huey ble row fixation, at which point, the 4.5 mm [place] anchor PushLock [place] anchors were then driven into place pulling the lateral-most edges of the graft into place. Two sets of sutures were then wo rey into the posterior portion of the graft and the anterior portion of the infraspinatus remnant. T hese were tied as a horizontal mattress trying to close the gap between the rotator cuff muscle and t he graft. Once completed all instruments were removed from the shoulder with 30 cc of Marcaine infused into the subacromial space. The portal sites were closed using 3-0 nylon suture in a [id number] type st itch with plasma gel placed in the subacromial space. The wounds were dressed with Xeroform, 4 x 4, a nd Tegaderm. She was completely undraped in the operating room, had the right upper extremity placed in a shoulder immobilizer. She was then woken up, extubated, transferred onto a stretcher, and sent to recovery room in good condition. /[id number]/MODL
[2018-03-13 16:43] VITALS: BP 123/73
== END 2018-03-13 17:05 | disposition home or self-care (01) ==
LOC: FSGY 08:26
PROVIDERS: ATTEND Orthopaedic Surgery
DX: M75.101 Unspecified rotator cuff tear or rupture of right shoulder, not specified as traumatic (principal); F17.210 Nicotine dependence, cigarettes, uncomplicated
CPT/HCPCS: C1713; J0171; J1100; J2250; J2405; J2704; J2795; J3010; Q4125